=== PATIENT | male | born 1960 | race American Indian/Alaskan Native ===

== ENCOUNTER 2020-12-18 17:42 | Inpatient (IN) | payer OTHER, BC ==
[2020-12-18] MEDS ORDERED: HEPARIN 10,000 UNITS/10 ML VIAL IV ONE (17:48)
[2020-12-18] MEDS ORDERED: HEPARIN 10,000 UNITS/10 ML VIAL ONE (17:53)
--- NOTE | 2020-12-18 17:55 | Emergency Department Report ---
HPI - General Time Seen by Provider: 12/18/20 17:48 - HPI HPI: 60-year-old male presents to the emergency department via EMS from home with a concern for STEMI. Patient had nausea vomiting and developed substernal chest pain just prior to presentation. Initial EKG, sent over by EMS, showed some septal ST elevations with questionable depressions inferiorly, and a code STEMI was initiated. The patient received 4 mg of Zofran, 2 sublingual nitroglycerin, and a full dose aspirin in route with EMS. Patient presents still complaining of significant substernal chest pain. He has a past medical history of hypertension and some type of low back pain history for which she is on gabapentin. He is a smoker but denies any illicit drug use. ED Review of Systems ROS: Stated complaint: POSS STROKE Other details as noted in HPI Comment: All other systems reviewed and negative Constitutional: denies: chills, fever Eyes: denies: eye pain, vision change ENT: denies: ear pain, throat pain Respiratory: denies: cough, wheezing Cardiovascular: chest pain. denies: edema Gastrointestinal: nausea, vomiting Genitourinary: denies: dysuria, discharge Musculoskeletal: denies: joint swelling, arthralgia Skin: denies: rash, lesions Neurological: denies: headache, weakness Physical Exam - Physical Exam Physical Exam: GENERAL: The patient is ill-appearing. HENT: Normocephalic. Atraumatic. Patient has moist mucous membranes. EYES: Extraocular motions are intact. NECK: Supple. Trachea is midline. CHEST/LUNGS: Clear to auscultation. There is no respiratory distress noted. Unable to reproduce chest pain to palpation of the chest wall. No crepitus or deformity. HEART/CARDIOVASCULAR: Regular. There is no tachycardia. There is no murmur. ABDOMEN: Abdomen is soft, nontender. Patient has normal bowel sounds. There is no abdominal distention. SKIN: Skin is warm and dry. NEURO: The patient is awake, alert, and oriented. The patient is cooperative. The patient has no focal neurologic deficits. Normal speech. MUSCULOSKELETAL: There is no tenderness or deformity. There is no limitation range of motion. ED Course - Consultations Consultation #1: 12/18/20 17:53 I spoke with the supervisor pumping on-call, Dr. Braden. He took a look at the initial EMS EKG, then the EKG done in the emergency department, and will proceed with Rehab Rn activation. ED Medical Decision Making - Lab Data Result diagrams: 12/18/20 17:57 12/18/20 17:57 Lab Results 12/18/20 12/18/20 12/18/20 Range/Units 17:57 17:57 17:57 WBC 8.8 (4.5-11.0) K/mm3 RBC 4.84 (3.65-5.03) M/mm3 Hgb 14.4 (11.8-15.2) gm/dl Hct 43.0 (35.5-45.6) % MCV 89 (84-94) fl MCH 30 (28-32) pg MCHC 34 (32-34) % RDW 14.4 (13.2-15.2) % Plt Count 254 (140-440) K/mm3 Lymph % (Auto) 17.1 (13.4-35.0) % [place] % (Auto) 8.1 H (0.0-7.3) % Eos % (Auto) 0.9 (0.0-4.3) % Baso % (Auto) Cloth Napping Supervisor Lymph # (Auto) 1.5 (1.2-5.4) K/mm3 [place] # (Auto) 0.7 (0.0-0.8) K/mm3 Eos # (Auto) 0.1 (0.0-0.4) K/mm3 Baso # (Auto) 0.1 (0.0-0.1) K/mm3 Seg Neutrophils % 73.1 H (40.0-70.0) % Seg Neutrophils # 6.5 (1.8-7.7) K/mm3 PT 12.4 (12.2-14.9) Sec. INR 0.87 (0.87-1.13) APTT 25.1 (24.2-36.6) Sec. Sodium 134 L (137-145) mmol/L Potassium 3.6 (3.6-5.0) mmol/L Chloride 99.1 (98-107) mmol/L Carbon Dioxide 24 (22-30) mmol/L Anion Gap 15 mmol/L BUN 17 (9-20) mg/dL Creatinine 1.4 H (0.8-1.3) mg/dL Estimated GFR > 60 ml/min BUN/Creatinine Ratio 12 % Glucose 140 H (75-100) mg/dL Calcium 9.9 (8.4-10.2) mg/dL Total Creatine Kinase 70 (55-170) units/L CK-MB (CK-2) 2.1 (0.0-4.0) ng/mL CK-MB (CK-2) Rel Index 3.0 (0-4) Troponin T 0.091 H (0.00-0.029) ng/mL Blood Type 12/18/20 Range/Units 18:01 WBC (4.5-11.0) K/mm3 RBC (3.65-5.03) M/mm3 Hgb (11.8-15.2) gm/dl Hct (35.5-45.6) % MCV (84-94) fl MCH (28-32) pg MCHC (32-34) % RDW (13.2-15.2) % Plt Count (140-440) K/mm3 Lymph % (Auto) (13.4-35.0) % [place] % (Auto) (0.0-7.3) % Eos % (Auto) (0.0-4.3) % Baso % (Auto) Lymph # (Auto) (1.2-5.4) K/mm3 [place] # (Auto) (0.0-0.8) K/mm3 Eos # (Auto) (0.0-0.4) K/mm3 Baso # (Auto) (0.0-0.1) K/mm3 Seg Neutrophils % (40.0-70.0) % Seg Neutrophils # (1.8-7.7) K/mm3 PT (12.2-14.9) Sec. INR (0.87-1.13) APTT (24.2-36.6) Sec. Sodium (137-145) mmol/L Potassium (3.6-5.0) mmol/L Chloride (98-107) mmol/L Carbon Dioxide (22-30) mmol/L Anion Gap mmol/L BUN (9-20) mg/dL Creatinine (0.8-1.3) mg/dL Estimated GFR ml/min BUN/Creatinine Ratio % Glucose (75-100) mg/dL Calcium (8.4-10.2) mg/dL Total Creatine Kinase (55-170) units/L CK-MB (CK-2) (0.0-4.0) ng/mL CK-MB (CK-2) Rel Index (0-4) Troponin T (0.00-0.029) ng/mL Blood Type B POSITIVE - EKG Data -: EKG Interpreted by Me EKG shows normal: sinus rhythm, axis, intervals, QRS complexes (Nonspecific IVCD), ST-T waves (ST elevation to septal leads) Rate: normal - EKG Data When compared to previous EKG there are: previous EKG unavailable Interpretation: acute MT, other (Sinus rhythm at 45 bpm, with nonspecific IVCD, ST elevations to the septal leads) - Medical Decision Making This patient initially was called in by EMS as a potential STEMI. I did see that EKG and there was concern for an anteroseptal MT with ST elevations to the anteroseptal leads and some mild depressions inferiorly. The code STEMI was initiated prearrival. I spoke with the supervisor pumping who recommended getting another EKG upon the patient's arrival to the emergency department and that he would come see him in the emergency department. This repeat EKG still showed some anteroseptal elevations without reciprocal depressions but was still concerning for an ischemic coronary lesion. Patient continued to have substernal chest pain with some nausea. He was seen in the emergency department by the supervisor pumping who agreed to take the patient to the Rehab Rn. Patient's labs show an elevated first troponin level of 0.09. I spoke to the supervisor pumping after Rehab Rn intervention and it appears that the patient had a 99% occlusion of the mid LAD and a stent was placed. Patient will be admitted to the ICU post catheterization by the hospitalist, Dr. Keith. Critical Care Time: Yes Critical care time in (mins) excluding proc time.: 31 Critical care attestation.: If time is entered above; I have spent that time in minutes in the direct care of this critically ill patient, excluding procedure time. Critical care time was spent on this patient doing the EMS prearrival and evaluation of the EKG and discussion with interventional cardiology, patient's initial presentation and multiple reevaluations, a second discussion with the supervisor pumping, ordering of labs, IV heparin. Critical Care Time: 31 minutes ED Disposition Clinical Impression: STEMI (ST elevation myocardial infarction), ACS (acute coronary syndrome) Disposition: 09 ADMITTED INPATIENT Is pt being admited?: Yes Condition: Serious Time of Disposition: 19:27
[2020-12-18] MEDS ORDERED: NITROGLYCERIN SYRINGE 0 ML ONE (18:04)
[2020-12-18] MEDS ORDERED: HEPARIN/NS 5000 UNIT/500ML 1,000 ML IR ONE (18:04)
[2020-12-18] MEDS ORDERED: SODIUM CHLORIDE 0.9% 1000 ML 1,000 ML ONE (18:05)
--- NOTE | 2020-12-18 18:05 | History and Physical Report ---
History of Present Illness Chief complaint: My chest hurts History of present illness: 60 YO Male with Obesity, HTN, LDD presents to ED for evaluation. Patient reports "I am having chest pain". Patient states that he experienced sudden onset of chest pain shortly prior to presentation. Patient states that pain is 8/10, constant, crushing in nature, substernal, relieved with nitro, worsened with exertion, relieved with rest. EMS was notified and upon arrival the patient was found to be in distress. An EKG was completed and the patient was found to have EKG changes. A code STEMI was called and the patient was subsequently transported to [facility] for further care and evaluation of the aforementioned symptoms. The patient was seen and evaluated in the emergency room. All lab and imaging studies reviewed. Patient found to have EKG changes consistent with STEMI. Cardiology team consulted and the patient was taken urgently to [facility]. Patient admitted to ICU for further care. No prior admission for review. No medication listed at time of admission for reconciliation. Advanced care planning conducted in ED. Past History Past Medical History: hypertension, other (See HPI) Past Surgical History: No surgical history, Other (Reviewed) Social history: single Family history: hypertension Medications and Allergies Allergies Allergy/AdvReac Type Severity Reaction Status Date / Time No Known Allergies Allergy Verified 12/18/20 18:05 Active Meds: Active Medications Heparin Sodium (Porcine) (Heparin 1,000 Unit/1 Ml Vial) 4,000 unit IV BOLUS ONE Stop: 12/18/20 17:49 Review of Systems Constitutional: no weight loss, no weight gain, no fever, no chills Ears, nose, mouth and throat: no ear pain, no tinnitis, no decreased hearing, no nose pain Cardiovascular: no chest pain, no palpitations, no rapid/irregular heart beat, no edema, no syncope Respiratory: no cough, no cough with sputum Gastrointestinal: no nausea, no diarrhea, no constipation, no change in bowel habits Genitourinary Male: no hematuria, no flank pain, no discharge, no urinary frequency, no urinary hesitancy, no nocturia, no incontinence Rectal: no pain, no incontinence Musculoskeletal: no neck stiffness, no neck pain, no arm numbness/tingling, no low back pain Integumentary: no rash, no pruritis, no redness, no sores Neurological: no head injury, no paralysis, no weakness, no parathesias, no numbness, no tingling, no tremors Psychiatric: no anxiety, no memory loss, no insomnia, no hypersomnia, no change in libido, no suicidal ideation Endocrine: no cold intolerance, no heat intolerance, no excessive thirst, no polydipsia, no polyuria Hematologic/Lymphatic: no easy bruising, no lymphadenopathy Allergic/Immunologic: no urticaria, no persistent infections, no anaphylaxis Exam - Constitutional General appearance: Present: mild distress, obese - EENT Eyes: Present: PERRL ENT: hearing intact, clear oral mucosa - Neck Neck: Present: supple, normal ROM - Respiratory Respiratory effort: normal Respiratory: bilateral: CTA - Cardiovascular Heart Sounds: Present: S1 & S2. Absent: rub, click - Extremities Extremities: pulses symmetrical, No edema Peripheral Pulses: within normal limits - Abdominal General gastrointestinal: Present: soft, non-tender, non-distended, normal bowel sounds Male genitourinary: Present: normal - Integumentary Integumentary: Present: clear, warm, dry - Musculoskeletal Musculoskeletal: gait normal, strength equal bilaterally - Psychiatric Psychiatric: appropriate mood/affect, intact judgment & insight - Neurologic Neurologic: CNII-XII intact, moves all extremities Results - Labs CBC & Chem 7: 12/18/20 17:57 12/18/20 17:57 Assessment and Plan - Patient Problems (1) STEMI (ST elevation myocardial infarction) Current Visit: Yes Status: Acute Plan to address problem: Patient taken urgently to cardiac [facility], cardiology team consulted, further care management as per cardiology team. The high probability of a clinically significant, sudden or life threatening de terioration of the [cardiac, neuro] system(s) required my full and direct attention, intervention and personal management. The aggregate critical care time was [65] minutes. This time is in addition to time spent performing reported procedures but includes the following: [x] Data Review and interpretation [x] Patient assessment and monitoring of vital signs [x] Documentation [x] Medication orders and management (2) Diastolic CHF Current Visit: Yes Status: Suspected Qualifiers: Heart failure chronicity: acute Qualified Code(s): I50.31 - Acute diastolic (congestive) heart failure Plan to address problem: Strict I/O, blood pressure goal, monitor urine output every shift, daily weight, afterload reduction, cardiology team consulted. (3) HTN (hypertension) Current Visit: Yes Status: Acute Qualifiers: Hypertension type: primary hypertension Qualified Code(s): I10 - Essential (primary) hypertension Plan to address problem: Monitor blood pressure every shift, continue medical management. (4) Obesity (BMI 30.0-34.9) Current Visit: Yes Status: Acute Plan to address problem: Balanced diet, increase physical activity discharge, outpatient pulmonary follow-up for sleep study. (5) ACS (acute coronary syndrome) Current Visit: Yes Status: Acute Plan to address problem: Serial cardiac enzymes, EKG, telemetry, patient mated to ICU for further care. Cardiology team consulted. (6) DVT prophylaxis Current Visit: Yes Status: Acute Plan to address problem: SCD to bilateral lower extremities while in bed (7) Advance care planning Current Visit: Yes Status: Acute Plan to address problem: Disease education conducted, care plan discussed, diagnosis discussed, prognosis discussed, patient is full code, patient knowledges understanding and agree with care plan, +30 minutes.
[2020-12-18] MEDS: fentaNYL 100 MCG/2 ML INJ ONE (18:20)
[2020-12-18] MEDS: LIDOCAINE (2%) 20 MG/1 ML VIAL 20 ML MDV INFILTRATI ONE ×2 (18:21→18:28)
[2020-12-18] MEDS: MIDAZOLAM 2 MG/2 ML INJ ONE ×2 (18:21→18:27)
[2020-12-18] MEDS: VERAPAMIL 5 MG/2 ML INJ ONE ×2 (18:22→18:29)
[2020-12-18] MEDS ORDERED: LIDOCAINE PF 100 MG/5 ML (CARDIAC SYRINGE) IV ONE (18:23)
[2020-12-18] MEDS ORDERED: EPINEPHrine 1 MG/10 ML SYRINGE ONE (18:23)
[2020-12-18] MEDS ORDERED: PHENYLEPHRINE/NS 1,000 MCG/10 ML SYRINGE (OR USE) IV ONE (18:23)
[2020-12-18] MEDS ORDERED: ATROPINE 0.1% (1 MG/10 ML) CARDIAC SYRINGE ONE (18:23)
[2020-12-18 18:27] LABS: Basophils # (Auto) 0.1 K/mm3 (0.0-0.1); Eosinophils # (Auto) 0.1 K/mm3 (0.0-0.4); Eosinophils % (Auto) 0.9 % (0.0-4.3); Hemoglobin 14.4 gm/dl (11.8-15.2); INR 0.87 (0.87-1.13); Lymphocytes # (Auto) 1.5 K/mm3 (1.2-5.4); Lymphocytes % (Auto) 17.1 % (13.4-35.0); Mean Corpuscular HGB Conc 34 % (32-34); Mean Corpuscular Volume 89 fl (84-94); Monocytes # (Auto) 0.7 K/mm3 (0.0-0.8); Monocytes % (Auto) 8.1 % (0.0-7.3); Partial Thromboplastin Time 25.1 Sec. (24.2-36.6); Platelet Count 254 K/mm3 (140-440); Red Blood Count 4.84 M/mm3 (3.65-5.03); Red Cell Distribution Width 14.4 % (13.2-15.2)
[2020-12-18 18:41] LABS: Creatine Kinase MB 2.1 ng/mL (0.0-4.0)
[2020-12-18 18:42] LABS: BUN/Creatinine Ratio 12; Blood Urea Nitrogen 17 mg/dL (9-20); Calcium 9.9 mg/dL (8.4-10.2); Hemolysis Index 15
[2020-12-18] MEDS ORDERED: HEPARIN/NS 5000 UNIT/500ML 500 ML IR ONE (18:44)
[2020-12-18] MEDS: HEPARIN 10,000 UNITS/10 ML VIAL ONE ×2 (18:50→19:05)
[2020-12-18] MEDS ORDERED: ACETAMINOPHEN 325 MG TAB PO PRN (19:00)
[2020-12-18] MEDS ORDERED: HYDROmorphone 1 MG/1 ML INJ IV PRN (19:00)
[2020-12-18] MEDS ORDERED: ALBUTEROL 2.5 MG/3 ML NEBU IH PRN (19:00)
[2020-12-18] MEDS ORDERED: CLOPIDOGREL 300 MG TAB ONE (19:11)
[2020-12-18] MEDS ORDERED: HEPARIN/ 0.45% NACL DRIP 25,000 UNIT/500 ML BAG IV SCH (20:00)
[2020-12-18] MEDS ORDERED: HEPARIN/ 0.45% NACL DRIP 25,000 UNIT/500 ML BAG ONE (20:09)
[2020-12-18] MEDS ORDERED: HEPARIN 10,000 UNITS/10 ML VIAL IV PRN (21:00)
--- NOTE | 2020-12-18 22:55 | XRay Report ---
CHEST 1 VIEW 12/18/2020 9:43 PM INDICATION / CLINICAL INFORMATION: CP. COMPARISON: None available. FINDINGS: SUPPORT DEVICES: None. HEART / MEDIASTINUM: Calcified left mediastinal nodes No significant abnormality. LUNGS / PLEURA: Calcified left upper lobe granuloma. No significant pulmonary or pleural abnormality. No pneumothorax. ADDITIONAL FINDINGS: Previous fracture ORIF left greater tuberosity IMPRESSION: 1. No acute findings. Signer Name: Jed Garza MD Signed: 12/18/2020 10:51 PM Workstation Name: [id number]
--- NOTE | 2020-12-18 23:03 | Cardiac Catherization Report ---
DATE OF SERVICE: 12/18/2020 CARDIAC CATHETERIZATION AND CORONARY INTERVENTION REPORT INDICATIONS: The patient is a 60-year-old gentleman with history of essential hypertension, chronic smoking, borderline elevated lipids, presented with acute onset of chest pain with no previous cardiac history. Takes antihypertensive medications, namely amlodipine and hydrochlorothiazide. Initial EKG showed some ST elevations in the anterior leads, which improved on the second EKG. However, because of the persistent chest pain, he was taken to the catheterization laboratory on an emergency basis. The patient was explained of the diagnosis, procedure and potential complications. He is willing to proceed with angiograms and intervention on an emergency basis. DESCRIPTION OF PROCEDURE: The patient was prepared in standard fashion. The patient received 4000 units of heparin in the Emergency Room and received 6 mg of morphine in the Emergency Room. Subsequently, after preparing with sterile drapes, local anesthesia was given in the right wrist area and right radial artery puncture was made using a 21-gauge arterial puncture needle. Subsequently, 5-Indonesian slender sheath was introduced. A 5-Indonesian EBU 3.5 guiding catheter was engaged in the left coronary artery. Initially, it engaged the circumflex artery which showed mild ectasia in the proximal part with no significant disease distally. Selective injection of the LAD showed ectasia, mild, diffuse in the proximal LAD and after giving rise to a large diagonal branch, there is a very tight, probably thrombotic 98-90% lesion with some sluggish flow in the LAD. Distal LAD showed 30 % smooth lesion. Large diagonal branch without significant disease. Subsequently, the patient underwent intervention of the mid LAD. Intervention of the mid LAD: The patient has indwelling 5-Indonesian slender sheath and a 6-Indonesian EBU guiding catheter engaging the left coronary artery. The patient was given extra dose of 5000 units of heparin. A 0.014 inch [place] XT guidewire was advanced, one wire into the septal branch and other wire into the distal LAD. Lesion was dilated with a 3.0 x 15 mm Euphora balloon up to 14 atmospheres. This resulted in improvement of the lesion from 98% to 30-40%. Subsequently, 3.5 x 18 mm Resolute Rafat stent was inserted and dilated up to 16 atmospheres with very good result. Final residual stenosis of 0%. NKECHI flow, which was 2 initially, was 3 at the end of the procedure. The patient tolerated the procedure well and hemodynamically stable with no significant chest pain. Subsequently, angiograms of the right coronary artery were obtained. This showed to be the dominant vessel with mild disease proximally and also mild to moderate irregularities in the mid part. PDA and LV branch without significant disease. COLLATERALS: None. Left ventriculogram was performed in SOUSA projection using hand injection and JR4 catheter. This showed LV dilation, mildly, with elevated end-diastolic pressure of 44 mmHg. However, systolic function appears to be lower limits of normal to normal in the range of 50%. Mitral regurgitation could not be evaluated. FINAL IMPRESSION: Angiography showed very tight mid LAD lesion, in addition to ectasia in the proximal LAD and ectasia in the proximal circumflex artery with moderate mid RCA disease. Markedly elevated end-diastolic pressure of 44 mmHg with near normal LV systolic function of 50% noted. The patient underwent emergency balloon angioplasty and drug-eluting stent placement of the mid LAD with very good result. This was performed for acute STEMI of few hours duration. Lesion was reduced from 98% to 0%. NKECHI 2 flow was converted to NKECHI 3 flow. No complications or perforation or dissection or embolization noted. The patient was given IV sedation with IV Versed and fentanyl in addition to his IV morphine he got in the Emergency Room. His sedation and monitoring started. The patient was given 600 mg of Plavix in the catheterization laboratory. The patient will be continued on aspirin in addition to atorvastatin and will be started on metoprolol. The patient is on amlodipine at home. We will continue the same. No untoward complications were noted. Radial sheath will be removed when ACT is less than 200 seconds. The patient's moderated sedation started at 1827 hours and ended at 1904 hours. At the end of the procedure, the patient is communicating normally, breathing normally with no focal deficits. TID: [id number] RECEIPT: [id number] RAY/MIMI/ROD LEMA
[2020-12-18] MEDS: METOPROLOL TARTRATE 50 MG TAB PO SCH (23:41)
[2020-12-18] MEDS: oxyCODONE /ACETAMINOPHEN 5-325MG TAB PO PRN (23:42)
[2020-12-19 00:38] LABS: Hematocrit 41.4 % (35.5-45.6); Hemoglobin 13.8 gm/dl (11.8-15.2)
[2020-12-19 00:54] LABS: Creatine Kinase MB 110.6 ng/mL (0.0-4.0)
[2020-12-19 00:56] LABS: INR 0.99 (0.87-1.13)
[2020-12-19 00:58] LABS: Partial Thromboplastin Time 52.7 Sec. (24.2-36.6)
[2020-12-19] MEDS: SODIUM CHLORIDE 0.9% 1000 ML 1,000 ML IV SCH ×2 (02:06→11:43)
[2020-12-19 02:32] LABS: Chol/HDL Ratio 4.23 %
[2020-12-19 05:44] LABS: BUN/Creatinine Ratio 11; Blood Urea Nitrogen 16 mg/dL (9-20); Calcium 9.1 mg/dL (8.4-10.2); Hemolysis Index 5
[2020-12-19] MEDS: fentaNYL 100 MCG/2 ML INJ ONE (08:11)
[2020-12-19] MEDS: METOPROLOL TARTRATE 50 MG TAB PO SCH ×2 (09:05→21:24)
[2020-12-19] MEDS: ASPIRIN 325 MG TAB PO SCH (09:05)
[2020-12-19] MEDS: oxyCODONE /ACETAMINOPHEN 5-325MG TAB PO PRN (09:05)
[2020-12-19] MEDS: CLOPIDOGREL 75 MG TAB PO SCH (09:05)
--- NOTE | 2020-12-19 09:11 | Consultation ---
DATE OF CONSULTATION: 12/18/2020 CARDIOLOGY CONSULTATION HISTORY OF PRESENT ILLNESS: A 60-year-old -Citizen Of [place] gentleman who around lunchtime ate spaghetti and since that time, he is having anterior chest discomfort and then got nausea and some bowel movement, which was hard. Subsequently, his pain got worse. No associated sweating or shortness of breath. Hence called the paramedics who performed an EKG and mild ST elevations were noted in the anterior leads, was brought to the emergency room and by the time he received morphine and his pain markedly improved, only mild ST elevations were noted in the precordial leads V2 and V3. No significant reciprocal changes noted. However, pain is persistent. Because of his borderline EKG changes with chest pain, it was felt that the patient would benefit from emergency catheterization and possible intervention. The patient's nausea improved. The patient did not have any history of cardiac problems in the past. No history of myocardial infarction or congestive heart failure or irregular heartbeat. He has a history of essential hypertension of many years' duration, for which he takes amlodipine, which is being provided at the [facility]. He used to see Dr. Delvis Parker in the past, but he did not see him in the last many years. History of borderline elevated lipids and also borderline elevated blood sugars. He is a chronic smoker for the last many years. Smokes half pack per day. Drinks alcohol occasionally. No drug abuse. The patient is . Denies any surgical history. He denies any recent significant hospitalizations except for left shoulder surgery many years ago. REVIEW OF SYSTEMS: He was in his usual state of health up to this afternoon. His symptoms started after eating spaghetti. No history of fever, cough and chills. No leg swelling. No orthopnea. No PND. He actually was walking this morning up to one mile without any chest pain or shortness of breath. No palpitations or dizziness. No history of strokes or seizures. No history of asthma. No history of peptic ulcer disease. No history of PE or DVT. No history of anemia. PHYSICAL EXAMINATION: GENERAL: The patient appears to be comfortable, well-developed, well-nourished. Conjunctivae pink. Sclerae are anicteric. NECK: Supple, no JVD. CARDIAC: Regular, no significant murmurs. Questionable S4. LUNGS: Clear. ABDOMEN: Benign. EXTREMITIES: Bounding pulses noted. NEUROLOGIC: Intact, oriented x3. FINAL IMPRESSION AND PLAN: 1. Chest pain a few hours duration with minor ST elevations in the anterior leads of questionable significance. This is new onset chest pain at rest. Considering this, we will proceed with emergency coronary angiography and possible intervention. The patient was evaluated in the emergency room. 2. History of essential hypertension, on antihypertensive medication, being followed at the [facility], was seen by Dr. Delvis Parker many years ago. 3. History of borderline elevated lipids and blood sugars. 4. Chronic smoking. Smokes half pack per day. The patient is hemodynamically stable at this point. I explained the diagnosis to the patient and he is agreeable with the plan of undergoing emergency angiography and possible intervention. He is aware of alternative of medical therapy. TID: [id number] RECEIPT: [id number] RAY/MO/MODE
[2020-12-19] MEDS ORDERED: amLODIPine 5 MG TAB PO SCH ×2 (10:00→16:41)
--- NOTE | 2020-12-19 10:10 | Progress Note ---
Assessment and Plan Assessment and plan: Pt is a 60-year-old male, previously unknown to our practice, who presented yesterday evening with complaints of chest pain, accompanied by anterior ST elevations. 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 LV systolic function noted to be normal. Pt underwent balloon angioplasty and placement of mid LAD ISABEL with good results. He tolerated the procedure well. NEURO- acute pain alert/oriented no focal deficit PRN pain meds CV- HTN, HLD, CAD, S/P angioplasty and ISABEL to LAD metop/asa/statin norvasc see cath report from 12-18 EF 50 on cath down trending trop cardiac rehab consult see cards notes from this AM- likely d/c home in AM Resp-smoker alb nebs PRN smoking cessation education GI to cardiac diet net neg 20 ml over 24 hours follow and replace electrolytes as needed strict I/O trend Cr -1.4 today Heme AM labs ordered - pending at 1500 heparin gtt per cards AM labs ordered for Wednesday AM ID nap trend WBC and temp curve Endo nap trend blood glucose add insulin if needed Disposition Plan: to floor today Total Time Spent with Patient (Minutes): 30 non critical care History Interval history: sp cath/ISABEL yesterday remains pain free overnight Hospitalist Physical - Constitutional Vitals: Temp Pulse Resp BP Pulse Ox 98.2 F 76 12 103/69 98 12/19/20 08:00 12/19/20 09:05 12/18/20 22:00 12/19/20 09:05 12/19/20 04:00 General appearance: Present: no acute distress - EENT Eyes: Present: PERRL, EOM intact ENT: clear oral mucosa - Neck Neck: Present: supple, normal ROM - Respiratory Respiratory effort: normal - Cardiovascular Rhythm: regular Heart Sounds: Present: S1 & S2 - Extremities Extremities: no ischemia Peripheral Pulses: within normal limits - Abdominal General gastrointestinal: soft - Integumentary Integumentary: Present: clear, warm, dry - Psychiatric Psychiatric: appropriate mood/affect - Neurologic Neurologic: CNII-XII intact - Allied Health Allied health notes reviewed: nursing, RT, case management HEART Score - HEART Score Troponin: Troponin T 2.450 ng/mL (0.00-0.029) H* 12/19/20 08:52 Results - Labs CBC & Chem 7: 12/18/20 23:56 12/19/20 04:28 Labs: Laboratory Last Values WBC 8.8 K/mm3 (4.5-11.0) 12/18/20 17:57 RBC 4.84 M/mm3 (3.65-5.03) 12/18/20 17:57 Hgb 13.8 gm/dl (11.8-15.2) 12/18/20 23:56 Hct 41.4 % (35.5-45.6) 12/18/20 23:56 MCV 89 fl (84-94) 12/18/20 17:57 MCH 30 pg (28-32) 12/18/20 17:57 MCHC 34 % (32-34) 12/18/20 17:57 RDW 14.4 % (13.2-15.2) 12/18/20 17:57 Plt Count 253 K/mm3 (140-440) 12/18/20 23:56 Lymph % (Auto) 17.1 % (13.4-35.0) 12/18/20 17:57 Isabela % (Auto) 8.1 % (0.0-7.3) H 12/18/20 17:57 Eos % (Auto) 0.9 % (0.0-4.3) 12/18/20 17:57 Baso % (Auto) Tableau Architect 12/18/20 17:57 Lymph # (Auto) 1.5 K/mm3 (1.2-5.4) 12/18/20 17:57 Isabela # (Auto) 0.7 K/mm3 (0.0-0.8) 12/18/20 17:57 Eos # (Auto) 0.1 K/mm3 (0.0-0.4) 12/18/20 17:57 Baso # (Auto) 0.1 K/mm3 (0.0-0.1) 12/18/20 17:57 Seg Neutrophils % 73.1 % (40.0-70.0) H 12/18/20 17:57 Seg Neutrophils # 6.5 K/mm3 (1.8-7.7) 12/18/20 17:57 PT 13.7 Sec. (12.2-14.9) 12/18/20 23:56 INR 0.99 (0.87-1.13) 12/18/20 23:56 APTT 52.7 Sec. (24.2-36.6) H 12/18/20 23:56 Heparin Anti-Xa Level < 0.10 U.I./ml (0.3-0.7) L 12/19/20 04:28 Sodium 137 mmol/L (137-145) 12/19/20 04:28 Potassium 4.2 mmol/L (3.6-5.0) 12/19/20 04:28 Chloride 103.3 mmol/L (98-107) 12/19/20 04:28 Carbon Dioxide 25 mmol/L (22-30) 12/19/20 04:28 Anion Gap 13 mmol/L 12/19/20 04:28 BUN 16 mg/dL (9-20) 12/19/20 04:28 Creatinine 1.4 mg/dL (0.8-1.3) H 12/19/20 04:28 Estimated GFR > 60 ml/min 12/19/20 04:28 BUN/Creatinine Ratio 11 % 12/19/20 04:28 Glucose 101 mg/dL (75-100) H 12/19/20 04:28 Calcium 9.1 mg/dL (8.4-10.2) 12/19/20 04:28 Total Creatine Kinase 737 units/L (55-170) H 12/18/20 23:56 CK-MB (CK-2) 110.6 ng/mL (0.0-4.0) H 12/18/20 23:56 CK-MB (CK-2) Rel Index 15.0 (0-4) H 12/18/20 23:56 Troponin T 2.450 ng/mL (0.00-0.029) H* 12/19/20 08:52 Triglycerides 97 mg/dL (2-149) 12/18/20 23:56 Cholesterol 182 mg/dL (50-199) 12/18/20 23:56 LDL Cholesterol Direct 136 mg/dL (50-130) H 12/18/20 23:56 HDL Cholesterol 43 mg/dL (40-59) 12/18/20 23:56 Cholesterol/HDL Ratio 4.23 % 12/18/20 23:56 Blood Type B POSITIVE 12/18/20 18:01 Antibody Screen Negative 12/18/20 18:01 Tate/IV: Voiding Method Urinal Active Medications - Current Medications Current Medications: Generic Name Dose Route Start Last Admin Trade Name Freq PRN Reason Stop Dose Admin Acetaminophen 650 mg 12/18/20 19:00 Acetaminophen 325 Mg Tab PO Q6H PRN Pain MILD(1-3)/Fever >100.5/WETZEL Hydrocodone Bitart/Acetaminophen 1 each 12/18/20 20:30 Hydrocodone/Acetaminophen 5-325 Mg Tab PO Q4H PRN Pain, Moderate (4-6) Albuterol 2.5 mg 12/18/20 19:00 Albuterol 2.5 Mg/3 Ml Nebu IH Q3HRT PRN Shortness Of Breath Amlodipine Besylate 5 mg 12/19/20 10:00 12/19/20 09:05 Amlodipine 5 Mg Tab PO 5 mg QDAY SOLIS Administration Aspirin 325 mg 12/19/20 10:00 12/19/20 09:05 Aspirin 325 Mg Tab PO 325 mg QDAY SOLIS Administration Atorvastatin Calcium 80 mg 12/18/20 22:00 12/19/20 02:01 Atorvastatin 40 Mg Tab PO Not Given QHS SOLIS Clopidogrel Bisulfate 75 mg 12/19/20 10:00 12/19/20 09:05 Clopidogrel 75 Mg Tab PO 75 mg QDAY SOLIS Administration Heparin Sodium (Porcine) 3,600 unit 12/18/20 21:00 12/19/20 09:07 Heparin 10,000 Units/10 Ml Vial 40 unit/kg (3600 unit) 3,600 unit IV Administration Q6H PRN Anti-Xa Assay < 0.1 units/ml Hydromorphone HCl 0.5 mg 12/18/20 19:00 Hydromorphone 1 Mg/1 Ml Inj IV Q12H PRN Pain , Severe (7-10) Sodium Chloride 1,000 mls @ 100 mls/hr 12/18/20 20:00 12/19/20 02:06 Nacl 0.9% 1000 Ml IV 12/19/20 19:59 100 mls/hr DIRECT SOLIS Administration Heparin Sodium/Sodium Chloride 25,000 unit in 500 mls @ 20 mls/hr 12/18/20 20:00 12/19/20 09:11 Heparin/ 0.45% Nacl-25,000 Unit/500 Ml IV 12/19/20 19:59 1,250 units/hr TITRATE SOLIS 25 mls/hr Titration Protocol 1,000 UNITS/HR Metoprolol Tartrate 50 mg 12/18/20 22:00 12/19/20 09:05 Metoprolol Tartrate 50 Mg Tab PO 12/28/20 21:59 50 mg BID SOLIS Administration Sodium Chloride 10 ml 12/18/20 22:00 12/19/20 09:05 Sodium Chloride 0.9% 10 Ml Flush Syringe IV 10 ml BID SOLIS Administration Sodium Chloride 10 ml 12/18/20 19:00 Sodium Chloride 0.9% 10 Ml Flush Syringe IV PRN PRN LINE FLUSH Nutrition/Malnutrition Assess - Attestation Statement I have reviewed and agreed w/ Malnutrition eval & tx plan: Yes
--- NOTE | 2020-12-19 10:28 | Consultation ---
History of Present Illness Consult date: 12/19/20 Requesting physician: SALVADOR VALENTINE Consult reason: other (STEMI) History of present illness: Pt is a 60-year-old male, previously unknown to our practice, who presented yesterday evening with complaints of chest pain, accompanied by anterior ST elevations. 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 LV systolic function noted to be normal. Pt underwent balloon angioplasty and placement of mid LAD ISABEL with good results. He tolerated the procedure well. Past History Past Medical History: hypertension Past Surgical History: denies: valve replacement, CABG, PTCA Social history: single Family history: hypertension Medications and Allergies Allergies Allergy/AdvReac Type Severity Reaction Status Date / Time No Known Allergies Allergy Verified 12/18/20 18:05 Active Meds: Active Medications Acetaminophen (Acetaminophen 325 Mg Tab) 650 mg PO Q6H PRN PRN Reason: Pain MILD(1-3)/Fever >100.5/WETZEL Hydrocodone Bitart/Acetaminophen (Hydrocodone/Acetaminophen 5-325 Mg Tab) 1 each PO Q4H PRN PRN Reason: Pain, Moderate (4-6) Albuterol (Albuterol 2.5 Mg/3 Ml Nebu) 2.5 mg IH Q3HRT PRN PRN Reason: Shortness Of Breath Amlodipine Besylate (Amlodipine 5 Mg Tab) 5 mg PO QDAY [facility] Last Admin: 12/19/20 09:05 Dose: 5 mg Documented by: Aspirin (Aspirin 325 Mg Tab) 325 mg PO QDAY [facility] Last Admin: 12/19/20 09:05 Dose: 325 mg Documented by: Atorvastatin Calcium (Atorvastatin 40 Mg Tab) 80 mg PO QHS [facility] Last Admin: 12/19/20 02:01 Dose: Not Given Documented by: Clopidogrel Bisulfate (Clopidogrel 75 Mg Tab) 75 mg PO QDAY [facility] Last Admin: 12/19/20 09:05 Dose: 75 mg Documented by: Heparin Sodium (Porcine) (Heparin 10,000 Units/10 Ml Vial) 3,600 unit 40 unit/kg (3600 unit) IV Q6H PRN PRN Reason: Anti-Xa Assay < 0.1 units/ml Last Admin: 12/19/20 09:07 Dose: 3,600 unit Documented by: Hydromorphone HCl (Hydromorphone 1 Mg/1 Ml Inj) 0.5 mg IV Q12H PRN PRN Reason: Pain , Severe (7-10) Sodium Chloride (Nacl 0.9% 1000 Ml) 1,000 mls @ 100 mls/hr IV DIRECT SOLIS Stop: 12/19/20 19:59 Last Admin: 12/19/20 02:06 Dose: 100 mls/hr Documented by: Heparin Sodium/Sodium Chloride (Heparin/ 0.45% Nacl-25,000 Unit/500 Ml) 25,000 unit in 500 mls @ 20 mls/hr IV TITRATE SOLIS; Protocol Stop: 12/19/20 19:59 Last Titration: 12/19/20 09:11 Dose: 1,250 units/hr, 25 mls/hr Documented by: Metoprolol Tartrate (Metoprolol Tartrate 50 Mg Tab) 50 mg PO BID [facility] Stop: 12/28/20 21:59 Last Admin: 12/19/20 09:05 Dose: 50 mg Documented by: Sodium Chloride (Sodium Chloride 0.9% 10 Ml Flush Syringe) 10 ml IV BID [facility] Last Admin: 12/19/20 09:05 Dose: 10 ml Documented by: Sodium Chloride (Sodium Chloride 0.9% 10 Ml Flush Syringe) 10 ml IV PRN PRN PRN Reason: LINE FLUSH Review of Systems Constitutional: no fever, no chills Cardiovascular: chest pain, no palpitations, no lightheadedness, no shortness of breath Respiratory: no cough, no shortness of breath Gastrointestinal: no abdominal pain, no nausea, no vomiting Genitourinary Male: no dysuria, no flank pain Musculoskeletal: no neck stiffness, no neck pain, no myalgias Integumentary: no rash, no wounds Neurological: no head injury, no paralysis, no weakness, no numbness, no tingling, no seizures, no syncope, no vertigo, no headaches Endocrine: no cold intolerance, no heat intolerance Hematologic/Lymphatic: no easy bruising, no easy bleeding Allergic/Immunologic: no anaphylaxis Physical Examination Last Vital Signs Temp 98.2 F 12/19/20 08:00 Pulse 59 L 12/19/20 10:00 Resp 15 12/19/20 08:00 BP 103/69 12/19/20 09:05 Pulse Ox 98 12/19/20 08:00 General appearance: no acute distress HEENT: Positive: EOMI, Normocephaly Neck: Positive: neck supple, trachea midline. Negative: JVD/HJR Cardiac: Positive: Reg Rate and Rhythm, S1/S2 Lungs: Positive: Decreased Breath Sounds Neuro: Positive: Grossly Intact Abdomen: Positive: Soft. Negative: Tender Skin: Negative: Rash Incision: Cardiac Cath Site (R radial - clean/dry/intact, no evidence of bleeding or hematoma) Musculoskeletal: No Pain Extremities: Present: lower extr. pulses. Absent: edema Results 12/18/20 23:56 12/19/20 04:28 Cardiac Enzymes 12/18/20 12/18/20 Range/Units 17:57 23:56 CK-MB (CK-2) 2.1 110.6 H (0.0-4.0) ng/mL Coagulation 12/18/20 12/18/20 Range/Units 17:57 23:56 PT 12.4 13.7 (12.2-14.9) Sec. INR 0.87 0.99 (0.87-1.13) APTT 25.1 52.7 H (24.2-36.6) Sec. Lipids 12/18/20 Range/Units 23:56 Triglycerides 97 (2-149) mg/dL Cholesterol 182 (50-199) mg/dL HDL Cholesterol 43 (40-59) mg/dL Cholesterol/HDL Ratio 4.23 % CBC 12/18/20 12/18/20 Range/Units 17:57 23:56 WBC 8.8 (4.5-11.0) K/mm3 RBC 4.84 (3.65-5.03) M/mm3 Hgb 14.4 13.8 (11.8-15.2) gm/dl Hct 43.0 41.4 (35.5-45.6) % Plt Count 254 253 (140-440) K/mm3 Lymph # (Auto) 1.5 (1.2-5.4) K/mm3 [place] # (Auto) 0.7 (0.0-0.8) K/mm3 Eos # (Auto) 0.1 (0.0-0.4) K/mm3 Baso # (Auto) 0.1 (0.0-0.1) K/mm3 Comprehensive Metabolic Panel 12/18/20 12/19/20 Range/Units 17:57 04:28 Sodium 134 L 137 (137-145) mmol/L Potassium 3.6 4.2 (3.6-5.0) mmol/L Chloride 99.1 103.3 (98-107) mmol/L Carbon Dioxide 24 25 (22-30) mmol/L BUN 17 16 (9-20) mg/dL Creatinine 1.4 H 1.4 H (0.8-1.3) mg/dL Glucose 140 H 101 H (75-100) mg/dL Calcium 9.9 9.1 (8.4-10.2) mg/dL - Imaging and Cardiology Cardiac cath: report reviewed EKG: report reviewed, image reviewed EKG interpretations - Telemetry EKG Rhythm: Sinus Rhythm - EKG Sinus rhythms and dysrhythmias: sinus rhythm Repolarization changes or abnormalities: ST or T wave suggestive of ischemia Myocardial infarction: anterior TN (acute or rec Assessment and Plan Continue heparin gtt x 24 hours. Continue bASA, Plavix, high-intensity statin, BB, & CCB. Smoking cessation encouraged. Pt verbalized understanding. Stable for transfer to tele floor. Anticipate discharge in AM if pt remains stable. Follow-up with Dr. Braden on 12/30/2020 @ 12:45pm ([phone]). Pt seen in conjunction with Dr. Braden, who agrees with the assessment and plan of care. - Patient Problems (1) STEMI (ST elevation myocardial infarction) Current Visit: Yes Status: Acute Qualifiers: Involved coronary artery: LAD coronary artery Qualified Code(s): I21.02 - ST elevation (STEMI) myocardial infarction involving left anterior descending coronary artery (2) S/P PTCA (percutaneous transluminal coronary angioplasty) Current Visit: Yes Status: Acute (3) CAD (coronary artery disease) Current Visit: Yes Status: Chronic Qualifiers: Coronary Disease-Associated Artery/Lesion type: [place] artery [place] vs. transplanted heart: [place] heart (4) NSVT (nonsustained ventricular tachycardia) Current Visit: Yes Status: Acute (5) HTN (hypertension) Current Visit: Yes Status: Chronic Qualifiers: Hypertension type: primary hypertension Qualified Code(s): I10 - Essential (primary) hypertension (6) Tobacco abuse Current Visit: Yes Status: Chronic
--- NOTE | 2020-12-19 14:37 | Consultation ---
History of Present Illness Consult date: 12/19/20 History of present illness: PULMONARY/CCM CONSULT NOTE (Full dictation # [id number]) Please see dictated notes for full details Past History Past Medical History: hypertension Past Surgical History: denies: valve replacement, CABG, PTCA Social history: single Family history: hypertension Medications and Allergies Allergies Allergy/AdvReac Type Severity Reaction Status Date / Time No Known Allergies Allergy Verified 12/18/20 18:05 Active Meds: Active Medications Acetaminophen (Acetaminophen 325 Mg Tab) 650 mg PO Q6H PRN PRN Reason: Pain MILD(1-3)/Fever >100.5/WETZEL Hydrocodone Bitart/Acetaminophen (Hydrocodone/Acetaminophen 5-325 Mg Tab) 1 each PO Q4H PRN PRN Reason: Pain, Moderate (4-6) Albuterol (Albuterol 2.5 Mg/3 Ml Nebu) 2.5 mg IH Q3HRT PRN PRN Reason: Shortness Of Breath Amlodipine Besylate (Amlodipine 5 Mg Tab) 5 mg PO QDAY [facility] Last Admin: 12/19/20 09:05 Dose: 5 mg Documented by: Aspirin (Aspirin 325 Mg Tab) 325 mg PO QDAY [facility] Last Admin: 12/19/20 09:05 Dose: 325 mg Documented by: Atorvastatin Calcium (Atorvastatin 40 Mg Tab) 80 mg PO QHS [facility] Last Admin: 12/19/20 02:01 Dose: Not Given Documented by: Clopidogrel Bisulfate (Clopidogrel 75 Mg Tab) 75 mg PO QDAY [facility] Last Admin: 12/19/20 09:05 Dose: 75 mg Documented by: Heparin Sodium (Porcine) (Heparin 10,000 Units/10 Ml Vial) 3,600 unit 40 unit/kg (3600 unit) IV Q6H PRN PRN Reason: Anti-Xa Assay < 0.1 units/ml Last Admin: 12/19/20 09:07 Dose: 3,600 unit Documented by: Hydromorphone HCl (Hydromorphone 1 Mg/1 Ml Inj) 0.5 mg IV Q12H PRN PRN Reason: Pain , Severe (7-10) Sodium Chloride (Nacl 0.9% 1000 Ml) 1,000 mls @ 100 mls/hr IV DIRECT SOLIS Stop: 12/19/20 19:59 Last Admin: 12/19/20 11:43 Dose: 100 mls/hr Documented by: Heparin Sodium/Sodium Chloride (Heparin/ 0.45% Nacl-25,000 Unit/500 Ml) 25,000 unit in 500 mls @ 20 mls/hr IV TITRATE SOLIS; Protocol Stop: 12/19/20 19:59 Last Titration: 12/19/20 09:11 Dose: 1,250 units/hr, 25 mls/hr Documented by: Metoprolol Tartrate (Metoprolol Tartrate 50 Mg Tab) 50 mg PO BID SOLIS Stop: 12/28/20 21:59 Last Admin: 12/19/20 09:05 Dose: 50 mg Documented by: Sodium Chloride (Sodium Chloride 0.9% 10 Ml Flush Syringe) 10 ml IV BID SOLIS Last Admin: 12/19/20 09:05 Dose: 10 ml Documented by: Sodium Chloride (Sodium Chloride 0.9% 10 Ml Flush Syringe) 10 ml IV PRN PRN PRN Reason: LINE FLUSH Physical Examination Vital signs: Vital Signs Pulse Resp BP Pulse Ox 71 16 105/63 100 12/18/20 19:08 12/18/20 19:08 12/18/20 19:08 12/18/20 19:08 Results - Laboratory Findings CBC and BMP: 12/18/20 23:56 12/19/20 04:28 PT/INR, D-dimer PT 13.7 Sec. (12.2-14.9) 12/18/20 23:56 INR 0.99 (0.87-1.13) 12/18/20 23:56 Abnormal lab findings: Abnormal Labs 12/18/20 12/18/20 12/18/20 17:57 17:57 23:56 Garza % (Auto) 8.1 H Seg Neutrophils % 73.1 H APTT Heparin Anti-Xa Level Sodium 134 L Creatinine 1.4 H Glucose 140 H Total Creatine Kinase 737 H CK-MB (CK-2) 110.6 H CK-MB (CK-2) Rel Index 15.0 H Troponin T 0.091 H 1.760 H* D LDL Cholesterol Direct 136 H 12/18/20 12/19/20 12/19/20 23:56 04:28 04:28 Garza % (Auto) Seg Neutrophils % APTT 52.7 H Heparin Anti-Xa Level < 0.10 L Sodium Creatinine 1.4 H Glucose 101 H Total Creatine Kinase CK-MB (CK-2) CK-MB (CK-2) Rel Index Troponin T 2.970 H* D LDL Cholesterol Direct 12/19/20 08:52 Garza % (Auto) Seg Neutrophils % APTT Heparin Anti-Xa Level Sodium Creatinine Glucose Total Creatine Kinase CK-MB (CK-2) CK-MB (CK-2) Rel Index Troponin T 2.450 H* LDL Cholesterol Direct
[2020-12-19 17:10] LABS: Hematocrit 39.2 % (35.5-45.6); Hemoglobin 12.7 gm/dl (11.8-15.2); Mean Corpuscular HGB Conc 32 % (32-34); Mean Corpuscular Volume 89 fl (84-94); Platelet Count 216 K/mm3 (140-440); Red Blood Count 4.39 M/mm3 (3.65-5.03); Red Cell Distribution Width 14.9 % (13.2-15.2)
[2020-12-19] MEDS: HYDROcodone/ACETAMINOPHEN 5-325 MG TAB PO PRN (20:53)
[2020-12-19] MEDS ORDERED: FAMOTIDINE 20 MG TAB PO SCH (22:00)
--- NOTE | 2020-12-19 22:54 | Consultation ---
DATE OF CONSULTATION: 12/19/2020 PULMONARY CRITICAL CARE NOTE CONSULTING PHYSICIAN: Dr. Keith. REASON FOR CONSULTATION: ST elevation IN. CHIEF COMPLAINT AND HISTORY OF PRESENT ILLNESS: As follows: The patient is a 60-year-old obese male with past medical history significant for a 10 plus pack year tobacco smoking history and hypertension, came into the Emergency Room complaining of chest pain, sudden onset 8/10. He tells me today it was more like an /10. It was constant, crushing in nature. It was substernal. It was relieved with nitro paste and sublingual nitro in the Emergency Room, relieved with rest. Evaluation revealed ST elevation IN. Code STEMI was called and he was taken to the labor relations representative, which revealed a tight mid left anterior descending lesion in addition to ectasia of the proximal LAD and ectasia in the proximal circumflex. He underwent balloon angioplasty and placement of mid LAD drug-eluting stent with good results. Post procedure, he is on IV heparin drip, antiplatelet therapy and brought into the intensive care unit. When I stopped by to see him, he was resting in bed. Chest pain has not returned. He denies nausea, vomiting now or prior to coming in. He denies any overt aspiration. He denied gross or streaky hemoptysis. He denies any new-onset leg pain or swelling, either unilaterally or bilaterally. It really is as much of the history of presentation as I have. PAST MEDICAL HISTORY: Hypertension, obesity. PAST SURGICAL HISTORY: None. MEDICATIONS: He was on at the time I stopped by to see him, according to the medication administration record included the following: Tylenol 650 mg p.o. q. 6 hours p.r.n. mild pain or fevers, Graham 5/325 one tablet p.o. q. 4 hours p.r.n. moderate pain, albuterol 2.5 mg nebulized q. 3 hours p.r.n. shortness of breath, amlodipine 5 mg p.o. daily, aspirin 325 mg p.o. daily, Lipitor 80 mg p.o. at bedtime, Plavix 75 mg p.o. daily, heparin drip was going per protocol, Dilaudid 0.5 mg IV q. 12 hours p.r.n. severe pain, metoprolol 50 mg p.o. b.i.d. ALLERGIES: No known drug allergies. DIET: Obese gentleman. Denies acute weight loss or gain in the preceding few weeks to months. FAMILY AND SOCIAL HISTORY: Lives in the community. Denies alcohol or illicit drug use or abuse. He has a 10 plus pack year tobacco smoking history, continues to smoke half a pack per day. FAMILY HISTORY: Otherwise, noncontributory. REVIEW OF SYSTEMS: No loss of consciousness. No new-onset seizures. No new-onset focal weakness. He had the chest pain, substernal. He denies gross hematochezia or melena. Denies gross hematuria or dysuria. Denies orthopnea, denied paroxysmal nocturnal dyspnea. Complete 13-system review of system was obtained. Pertinent positives and/or negatives as in body of history above, otherwise noncontributory. PHYSICAL EXAMINATION: VITAL SIGNS: At presentation and since he has been afebrile, presentation temperature 97.6 degrees Fahrenheit, pulse of 71, respiratory rate of 16 and blood pressure 105/63, O2 sats were 100%. At the time I saw him, O2 sats were about 98% and that was on 3 liters nasal cannula. GENERAL: He is an elderly obese male. Normocephalic, atraumatic, talking to me in full sentences with mildly increased respiratory effort at rest. HEAD, EYES, EARS, NOSE AND THROAT: Anicteric. No conjunctival erythema. Oropharynx was moist. Mallampati 4 oropharynx. NECK: No gross jugular venous distention, no thyromegaly. He has a large neck circumference. Grossly, there were no palpable lymph nodes in the supraclavicular or submandibular lymph node chains. LUNGS: Auscultation of both lung galloway unremarkable. Good bilateral air movement. No wheezing. HEART: Sounds 1 and 2 are heard, regular rate and rhythm at the time of my evaluation without overt rubs or murmurs. ABDOMEN: Soft, full, protuberant. Bowel sounds are positive, nontender, no palpable hepatosplenomegaly. EXTREMITIES: Without overt digital clubbing or cyanosis, no pedal edema. Pedal pulses are 2+ bilaterally. He did have I believe the right radial approach to his calf. NEUROLOGIC: Pupils are equal, round, reactive to light, about 4 mm. Extraocular muscle movements are intact. He moves all 4 extremities spontaneously. PSYCHIATRIC: Mood was normal. Affect was appropriate. He had intact judgment and insight. LABORATORY DATA: From my review are as follows: White count 8800, hemoglobin 14.4, hematocrit 43.0, platelet count 254. INR 0.87. Serum sodium 134, potassium 3.6, chloride 99, bicarbonate 24, BUN 17, creatinine 1.4, glucose 140. Troponin peaked at 2.97, now down to 2.45. No blood cultures. Chest x-ray shows really no acute process on the chest x-ray that I can see. ASSESSMENT: 1. ST elevation myocardial infarction. 2. Hypertension. 3. Hyperlipidemia. LDL cholesterol 136. 4. Obesity. 5. Tobacco use disorder. 6. Possible sleep-disordered breathing. PLAN: I have discussed at length with him the importance of stopping tobacco use. He seems to be determined and is planning to stop using. I have told him that he can reach out to his physician if he needs any aids to help with cessation in the meantime. He understands secondary prevention will include medication compliance, better blood pressure control, lipid control. I will defer to the park attendant for antiplatelet therapy. Hemodynamically, he is stable. He is doing well. I will add GI prophylaxis with him being on full anticoagulation. I have discussed at this moment with park attendant and the plan will be to ultimately transfer him to the telemetry unit. Otherwise, flu and pneumonia vaccination will be addressed per protocol. Thank you very much for the consult. We will follow along and make further recommendations as picture progresses/becomes clearer. TID: [id number] RECEIPT: [id number] RHONA/PREM
[2020-12-20 05:15] LABS: Hematocrit 38.5 % (35.5-45.6); Hemoglobin 12.8 gm/dl (11.8-15.2); Mean Corpuscular HGB Conc 33 % (32-34); Mean Corpuscular Volume 89 fl (84-94); Platelet Count 205 K/mm3 (140-440); Red Blood Count 4.31 M/mm3 (3.65-5.03); Red Cell Distribution Width 14.4 % (13.2-15.2)
[2020-12-20 05:30] LABS: BUN/Creatinine Ratio 10; Blood Urea Nitrogen 14 mg/dL (9-20); Calcium 8.5 mg/dL (8.4-10.2); Hemolysis Index 5
--- NOTE | 2020-12-20 08:07 | Discharge Summary ---
Providers - Providers Date of Admission: 12/18/20 18:05 Date of discharge: 12/20/20 Attending physician: CARTER BOO 12/18/20 18:05 Consult to Physician [CONS] Routine Comment: Consulting Provider: MERYL ZAMORANO Physician Instructions: Reason For Exam: stemi 12/18/20 19:38 Consult to Cardiac Rehabilitation [CONS] Routine Reason For Exam: Cardiac Rehab Evaluation Primary care physician: [employer] Hospitalization Reason for admission: STEMI Condition: Serious Hospital course: Pt is a 60-year-old male with past medical history of hypertension, valve replacement, CABG and PTCA who presented through the emergency department with complaints of chest pain, accompanied by anterior ST elevations. 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 LV systolic function noted to be normal. Pt underwent balloon angioplasty and placement of mid LAD ISABEL with good results. He tolerated the procedure well. The patient was transferred to the ICU postprocedure. The patient was continued on heparin drip. Patient also treated with bASA, Plavix, high-intensity statin, BB, & CCB. Smoking cessation was encouraged and patient verbalized understanding. Cardiology felt that the patient received maximal hospital benefit and could be discharged home. Dedicated discharge time 35 minutes. Follow-up with Dr. Wade on 12/30/2020 @ 12:45pm ([phone]). 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, with moderate mid RCA disease Core Measure Documentation - Palliative Care Palliative Care/ Comfort Measures: Not Applicable - Core Measures Any of the following diagnoses?: acute [place] - Acute [place] Discharge Requirements Aspirin at discharge: Yes LURDES/ARB for LVSD if EF <40%: No Reason for no LURDES/ARB: Renal impairment Beta charisse at discharge: Yes Statin for LDL = or >100 mg/dl on DC: Yes Exam - Constitutional Vitals: Temp Pulse Resp BP Pulse Ox 98.4 F 63 15 109/78 95 12/20/20 07:15 12/20/20 04:00 12/20/20 04:00 12/19/20 21:24 12/20/20 04:00 General appearance: Present: no acute distress, well-nourished - EENT Eyes: Present: PERRL ENT: hearing intact, clear oral mucosa - Neck Neck: Present: supple, normal ROM - Respiratory Respiratory effort: normal Respiratory: bilateral: CTA - Cardiovascular Heart Sounds: Present: S1 & S2. Absent: rub, click - Extremities Extremities: pulses symmetrical, No edema Peripheral Pulses: within normal limits - Abdominal General gastrointestinal: Present: soft, non-tender, non-distended, normal bowel sounds Male genitourinary: Present: normal - Integumentary Integumentary: Present: clear, warm, dry - Musculoskeletal Musculoskeletal: gait normal, strength equal bilaterally - Psychiatric Psychiatric: appropriate mood/affect, intact judgment & insight - Neurologic Neurologic: CNII-XII intact, moves all extremities Plan Activity: advance as tolerated Weight Bearing Status: Weight Bear as Tolerated Additional Instructions: Follow-up with Dr. Wade on 12/30/2020 @ 12:45pm ([phone]). Follow up with: PRIMARY CAREMD [Primary Care Provider] - 7 Days VENKAT WADE MD [Staff Physician] - 7 Days Prescriptions: amLODIPine 2.5 mg PO QDAY #30 tablet Aspirin 325 mg PO QDAY #30 tablet AtorvaSTATin [Lipitor] 80 mg PO QHS #30 tablet Metoprolol [Lopressor TAB] 50 mg PO BID #60 tablet HYDROcodone/APAP 5-325 [[place] 5-325 mg TAB] 1 each PO Q4H PRN #10 tablet PRN Reason: Pain, Moderate (4-6) Clopidogrel [Plavix] 75 mg PO QDAY #30 tablet
[2020-12-20] MEDS: ASPIRIN 325 MG TAB PO SCH (09:36)
[2020-12-20] MEDS: METOPROLOL TARTRATE 50 MG TAB PO SCH (09:36)
[2020-12-20] MEDS: CLOPIDOGREL 75 MG TAB PO SCH (09:36)
[2020-12-20] MEDS: HYDROcodone/ACETAMINOPHEN 5-325 MG TAB PO PRN (09:42)
--- NOTE | 2020-12-20 09:52 | Electrocardiograph Report ---
[facility] Test Date: 2020-12-18 Test Time: 22:01:35 Pat Name: MARIA VICTORIA KUMARI Department: Room: A258 1 Gender: M Maintenance Service Technician: TFORREST : 1960 Requested By: ANAIS RAHMAN Order Number: [id number] Reading MD: Denzel Wisdom Measurements Intervals [place] Rate: 97 P: 70 OR: 186 QRS: 110 QRSD: 125 T: -42 QT: 360 QTc: 459 Interpretive Statements Sinus rhythm PRWP POSSIBLE ASMI NSST'S PROBABLE 9 BEAT RUN OF NSVT No previous ECG available for comparison Electronically Signed On 12-20-2020 9:51:37 EDT by Denzel Wisdom
[2020-12-20] MEDS ORDERED: amLODIPine 5 MG TAB PO SCH (10:00)
[2020-12-20 10:02] VITALS: BP 113/74
--- NOTE | 2020-12-20 19:11 | Progress Note ---
Assessment and Plan Continue bASA, Plavix, high-intensity statin, and BB. Smoking cessation encouraged. Pt verbalized understanding. Currently stable cardiac status. Pt may be discharged. Follow-up with Dr. Braden on 12/30/2020 @ 12:45pm ([phone]). Pt seen in conjunction with Dr. Braden, who agrees with the assessment and plan of care. - Patient Problems (1) STEMI (ST elevation myocardial infarction) Status: Acute Qualifiers: Involved coronary artery: LAD coronary artery Qualified Code(s): I21.02 - ST elevation (STEMI) myocardial infarction involving left anterior descending coronary artery (2) S/P PTCA (percutaneous transluminal coronary angioplasty) Status: Acute (3) CAD (coronary artery disease) Status: Chronic Qualifiers: Coronary Disease-Associated Artery/Lesion type: [place] artery [place] vs. transplanted heart: [place]anga heart (4) NSVT (nonsustained ventricular tachycardia) Status: Acute (5) HTN (hypertension) Status: Chronic Qualifiers: Hypertension type: primary hypertension Qualified Code(s): I10 - Essential (primary) hypertension (6) Tobacco abuse Status: Chronic Subjective Date of service: 12/20/20 Principal diagnosis: STEMI s/p PCI of LAD Interval history: Resting comfortably with no complaints. SR 60-70s w/PVCs on tele. Objective Last Vital Signs Temp 98.4 F 12/20/20 07:15 Pulse 69 12/20/20 10:00 Resp 14 12/20/20 10:00 BP 113/74 12/20/20 10:00 Pulse Ox 96 12/20/20 10:00 - Physical Examination General: No Apparent Distress HEENT: Positive: EOMI, Normocephaly Neck: Positive: neck supple, trachea midline. Negative: JVD/HJR Cardiac: Positive: Reg Rate and Rhythm, S1/S2 Lungs: Positive: clear to auscultation Neuro: Positive: Grossly Intact Abdomen: Positive: Soft. Negative: Tender Skin: Negative: Rash Incision: Cardiac Cath Site (R radial - clean/dry/intact, no evidence of bleeding or hematoma) Musculoskeletal: No Pain Extremities: Present: lower extr. pulses. Absent: edema - Labs and Meds CBC 12/20/20 Range/Units 03:42 WBC 5.2 (4.5-11.0) K/mm3 RBC 4.31 (3.65-5.03) M/mm3 Hgb 12.8 (11.8-15.2) gm/dl Hct 38.5 (35.5-45.6) % Plt Count 205 (140-440) K/mm3 Comprehensive Metabolic Panel 12/20/20 Range/Units 03:42 Sodium 136 L (137-145) mmol/L Potassium 4.2 (3.6-5.0) mmol/L Chloride 104.6 (98-107) mmol/L Carbon Dioxide 24 (22-30) mmol/L BUN 14 (9-20) mg/dL Creatinine 1.4 H (0.8-1.3) mg/dL Glucose 95 (75-100) mg/dL Calcium 8.5 (8.4-10.2) mg/dL - Imaging and Cardiology EKG: report reviewed, image reviewed Cardiac cath: report reviewed - Telemetry EKG Rhythm: Sinus Rhythm - EKG Sinus rhythms and dysrhythmias: sinus rhythm Repolarization changes or abnormalities: ST or T wave suggestive of ischemia Myocardial infarction: anterior AL (acute or rec
== END 2020-12-20 10:45 | disposition home or self-care (01) | DRG 246 ==
LOC: ED 17:42 → CC1 18:05
PROVIDERS: ADMIT Internal Medicine; ATTEND Hospitalist
PROC: 027034Z Dilation of Coronary Artery, One Artery with Drug-eluting Intraluminal Device, Percutaneous Approach (ICD-10-PCS; principal; 2020-12-18)
PROC: 4A023N7 Measurement of Cardiac Sampling and Pressure, Left Heart, Percutaneous Approach (ICD-10-PCS; 2020-12-18)
PROC: B2111ZZ Fluoroscopy of Multiple Coronary Arteries using Low Osmolar Contrast (ICD-10-PCS; 2020-12-18)
PROC: B2151ZZ Fluoroscopy of Left Heart using Low Osmolar Contrast (ICD-10-PCS; 2020-12-18)
DX: I21.09 ST elevation (STEMI) myocardial infarction involving other coronary artery of anterior wall (principal); I50.31 Acute diastolic (congestive) heart failure; I47.2 Ventricular tachycardia; E66.9 Obesity, unspecified; I25.10 Atherosclerotic heart disease of native coronary artery without angina pectoris; F17.200 Nicotine dependence, unspecified, uncomplicated; I10 Essential (primary) hypertension; Z68.30 Body mass index [BMI] 30.0-30.9, adult; Z95.1 Presence of aortocoronary bypass graft; Z95.5 Presence of coronary angioplasty implant and graft; Z82.49 Family history of ischemic heart disease and other diseases of the circulatory system
CPT/HCPCS: 36415; 71045; 80048; 80061; 82550; 82553; 84484; 85014; 85018; 85025; 85027; 85049; 85520; 85610; 85730; 86850; 86900; 86901; 92941; 93005; 93458; G0378; A9270-GY; C1725; C1769; C1874; C1887; C1894; C9606; J0171; J0461; J1644; J2001; J2250; J2370; J3010; J7030; Q9967